=== PATIENT | male | born 1960 | race Caucasian/White ===

== ENCOUNTER 2016-09-07 10:00 | Inpatient (IN) | payer OTHER ==
[~2016-09-07] VITALS: Ht 180.3 cm; Wt 104.6 kg
--- NOTE | ~2016-09-07 | DS ---
PATIENT'S NAME: RUBIN BATISTA [facility] AGE: 56 Y [address] ROOM: [address] [place], [place] [address] LOCATION: GPCU ADMIT DATE: 09/07/2016 Discharge Summary DISCHARGE DATE: 09/11/2016 FAMILY PHYSICIAN: Shreyas Pena MD ATTENDING PHYSICIAN: Kostas Moon DISCHARGE DIAGNOSES: 1. ST-elevation myocardial infarction. 2. Essential hypertension. 3. Dyslipidemia. 4. Diabetes mellitus type 2. PROCEDURES: 1. 09/07/2016, left heart catheterization, PTCA stent LAD with bare-metal stent. 2. 09/09/2016, echocardiogram, EF 35%, [id number] left ventricular hypertrophy. 3. 09/10/2016, overnight trend oximetry showing evidence of significant nocturnal hypoxia. HOSPITAL COURSE: This is a 56-year-old gentleman who presented from [facility] via ambulance. He reported that he went into the hospital around 10 p.m. at night because of some chest discomfort. He took 2 baby aspirin and the pain resolved. The next morning around 6:30 a.m., he had some cough while he was sitting down and the chest pain returned;therefore, he presented to the emergency room there. He was found to have an ST-elevation myocardial infarction and he was started on heparin and nitroglycerin as well. Due to delay in air transport, he was given TNK. The pain remained at 7/10 in spite of lytics and he still had ST elevation; therefore, when he got to the emergency room in [facility], he was taken directly to cardiac cath. He was also placed on IABP pump overnight. The pump was then discontinued the next morning without any problems. He was then transferred to PCU. The patient was placed on beta-olegario and EN inhibitor therapy. He then had an echocardiogram, which showed acute ischemic cardiomyopathy. He was a little bit hypoxic and received some Lasix and they were able to discontinue his oxygen therapy. Prior to his discharge, he also underwent an overnight trend oximetry, which showed severe nocturnal hypoxia. He was then started on oxygen therapy at h.s. at home. In addition, he did have a little bit elevated creatinine and he was monitored closely and instructed not to take any offending medications including Advil and Aleve. He is on a statin for his hyperlipidemia. His last CPK peaked at 12,998, CK-MB 382 with a troponin I greater than 200 at 3 checks in a row. During the hospitalization, he was maintained on a moderate insulin sliding scale. DISCHARGE INSTRUCTIONS: Included follow up with Dr. Joleen Moon in 2 weeks. PATIENT'S NAME: RUBIN BATISTA [facility] AGE: 56 Y [address] ROOM: [place] [address] LOCATION: GPCU ADMIT DATE: 09/07/2016 Discharge Summary DISCHARGE DATE: 09/11/2016 FAMILY PHYSICIAN: Shreyas Pena MD ATTENDING PHYSICIAN: Kostas Moon He has appointment with Dr. Shreyas Pena as well. HOME MEDICATIONS: 1. His ibuprofen was stopped. 2. Aspirin 81 mg daily. 3. Metformin 1000 mg b.i.d. 4. [place]-3 fatty acids a 1000 mg everyday. 5. Atorvastatin 80 mg everyday. 6. Glipizide 10 mg twice a day. 7. Protonix 40 mg daily. 8. Brilinta 90 mg b.i.d. 9. Acetaminophen 650 mg every 4 hours. 10. Sodium chloride nasal spray as needed. 11. Metoprolol 25 mg daily in the morning and 12.5 mg at night. 12. MiraLAX 17 g p.o. everyday as needed. 13. Docusate sodium 100 mg twice a day. The patient and his verbalized understanding. JAMES BRADY APRN FOR MD NADEEN MORGANP/jeanl /[id number] d: 09/22/16 0543 t: 09/25/16 1319, DISCHARGE SUMMARY
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
--- NOTE | ~2016-09-07 | PUL ---
PATIENT'S NAME: RUBIN BATISTA [facility] AGE: 56 Y [address] ROOM: [facility] [place], [place] [address] LOCATION: GPCU ADMIT DATE: 09/07/2016 Pulmonary DISCHARGE DATE: 09/11/2016 FAMILY PHYSICIAN: Shreyas Pena MD ATTENDING PHYSICIAN: Kostas Moon NAME OF PROCEDURE: Overnight Pulse Oximetry DATE OF PROCEDURE: September 10 to September 11, 2016 REASON FOR EXAM: Nocturnal hypoxemia RESULTS: The test was performed on room air. The recording time was 5 hours, 22 minutes, with a total valid sampling time of 5 hours, 13 minutes, and 4 seconds. The highest pulse was 105, lowest pulse was 80, with a mean pulse of 88. The highest SpO2 99%, lowest SpO2 was 78%, with a mean pulse of 93.2%. The patient spent 7 minutes and 16 seconds with SpO2 less than 89%, representing 2.3% of the total sleep time. The desaturation event index was elevated at 36. PHYSICIAN INTERPRETATION: The patient has evidence of significant nocturnal hypoxia and would qualify for supplemental oxygen as per Medicare criteria. However because of his significant nocturnal hypoxia with an elevated desaturation event index a sleep study is recommended at this time. MD DK SAUL/anayeli /[id number] dtt: 09/15/16 0722 , COCO SAMSON dtd: 09/14/16 1428
--- NOTE | ~2016-09-07 | ECHO ---
Transthoracic Echocardiography Report (TTE) Demographics Patient Name RUBIN BATISTA Date of Study 09/09/2016 Patient Number [id number] Visit Number [id number] Date of 1960 Room Number G6328 Gender Male Number Age 56 year(s) Referring Red Kenyon MD Contour Grinder Praveena Zavala RVT Physician Jewell Silva MD Physician Interpreting Red Kenyon MD Department Store Manager Physician Supervising Ordering MD/MLP Physician Nurse Stress Geriatric Case Manager Conclusions Contractility Score Summary At rest the following contractility abnormalities were noted: Hypokinesis of the Mid infero-septal, the Apical inferior, the Apical septal, the Apical lateral and the Apical anterior segments; Akinesis of the Apical cap segment. Contractility of all other segments appeared normal. Summary The estimated left ventricular ejection fraction is 35%. Mild to moderate concentric left ventricular hypertrophy. Diastolic assessment reveals Grade I diastolic dysfunction. IVC measures 2.43 cm with no inspiratory collapse. Trivial mitral regurgitation by color Doppler. The aortic valve was not well imaged. The aortic valve is mildly sclerotic. The pulmonic valve is not well visualized. Possible pericardial effusion. Procedure Type of Study TTE procedure:2D Echocardiogram. Procedure Date Date: 09/09/2016 Start: 11:39 AM Study Location: Inpatient Portable Technical Quality: Limited visualization due to patient immobility. Additional Indications:STEMI Appropriate Use Criteria: 9 Patient Status: Routine HR: 104 bpm BP: 106/75 mmHg Allergies - No known allergies. M-Mode/2D Measurements LV Diastolic Dimension: 4.24 cm LV Systolic Dimension: 3.62 cm LV Septum Diastolic: 1.52 cm LV PW Diastolic: 1.33 cm AO Root Dimension: 2.8 cm Cardiac Output: 2.81 l/min AV Cusp Separation: 1.8 cm LA volume: 58 ml RV Base: 2.59 cm LVOT: 2 cm RV Mid: 2.41 cm LVOT VTI: 8.61 cm RV Length: 5.86 cm LV Stroke volume: 27.04 ml TDI-S': 15.2 cm/s Doppler Measurements AV Peak Velocity: 0.96 m/s MV Peak E-Wave: 0.51 m/s AV Peak Gradient: 3.67 mmHg MV Peak A-Wave: 0.61 m/s AV Mean Gradient: 2 mmHg MV E/A Ratio: 0.83 LVOT Peak Velocity: 0.56 m/s MV P1/2t: 32 msec TR Gradient:10.63 mmHg PV Peak Velocity: 0.83 m/s PV Peak Gradient: 2.74 mmHg E' Septal Velocity: 0.06 m/s A' Septal Velocity: 0.1 m/s E' Lateral Velocity: 0.06 m/s A' Lateral Velocity: 0.12 m/s Findings Left Ventricle Mild to moderate concentric left ventricular hypertrophy. Diastolic assessment reveals Grade I diastolic dysfunction. Right Ventricle Normal right ventricle structure and function. Left Atrium Normal left atrial size. Right Atrium IVC measures 2.43 cm with no inspiratory collapse. Mitral Valve Trivial mitral regurgitation by color Doppler. Aortic Valve The aortic valve is mildly sclerotic. Tricuspid Valve Normal tricuspid valve structure and function. Pulmonic Valve The pulmonic valve is not well visualized. Pericardial Effusion Possible pericardial effusion. Miscellaneous Visualized portions of the aortic root and ascending aorta appear normal in size. Pleural Effusion No evidence of pleural effusion. Contractility Score LV regional wall motion:(0-Non visualized 1-Normal 2-Hypokinesis 3-Akinesis 4-Dyskinesis 5-Aneurysm) Signature dtt: Kostas Moon (cardio) dtd: 09/09/16 1139 Physician Self Edit
--- NOTE | ~2016-09-07 | HP ---
PATIENT'S NAME: RUBIN ABTISTA [facility] AGE: 56 Y [address] ROOM: [place] [address] LOCATION: [facility] ADMIT DATE: 09/07/2016 History & Physical DISCHARGE DATE: FAMILY PHYSICIAN: Shreyas Pena MD ATTENDING PHYSICIAN: Kostas Moon DATE OF SERVICE: CHIEF COMPLAINT: Acute MA, diabetic management, and intractable nausea and vomiting. HISTORY OF PRESENT ILLNESS: This is a 56-year-old male with history of diabetes and hypertension, who presented to an outside facility with an acute onset of chest pain. Upon prompt evaluation, he was noted to have an acute anterior MA. The patient was promptly managed for an acute MA with Cardiology, Dr. Moon's consultation, was given tPA due to delays in transferring patient here, and was later transferred here. He did get a cardiac cath, and was noted to have a three- vessel disease including an LAD disease. He just had a bare-metal stent placed there. The patient currently is doing well. He reports that chest pain is significantly better, and is resting comfortably. The patient, however, continues to complain of nausea and vomiting; and this had been in relation to his onset of chest pain symptoms. Otherwise, the patient denies any dizziness, lightheadedness, or shortness of breath. He denies any fever, chills, cough, dysuria, or frequency of urination. PAST MEDICAL HISTORY: 1. Type 2 diabetes. 2. Hypertension. SOCIAL HISTORY: He has a remote history of smoking. He denies any alcohol or drug use. FAMILY HISTORY: The patient has history of heart disease and hypertension in his parents. REVIEW OF SYSTEMS: All systems have been reviewed, and were negative except as described in the HPI. PHYSICAL EXAMINATION: VITAL SIGNS: Afebrile, heart rate was 107, blood pressure was 115/96, saturating 91% on 2 L of oxygen, and respiratory rate was 17. GENERAL: The patient is awake and alert and oriented x3. No acute distress. HEENT: The patient has moist mucous membranes. No scleral icterus or PATIENT'S NAME: RUBIN BATISTA [facility] AGE: 56 Y [address] ROOM: [place] [address] LOCATION: [facility] ADMIT DATE: 09/07/2016 History & Physical DISCHARGE DATE: FAMILY PHYSICIAN: Shreyas Pena MD ATTENDING PHYSICIAN: Kostas Moon conjunctival pallor was noted. SKIN: Without rash or lesions. HEART: S1 and S2. Tachycardic. Regular rate and rhythm. CHEST: Clear to auscultation bilaterally. ABDOMEN: Soft, nontender, and nondistended with positive bowel sounds. NEUROLOGIC: Grossly nonfocal. MUSCULOSKELETAL: No joint pain, swelling, or tenderness was noted. ASSESSMENT AND PLAN: 1. Acute anterior myocardial infarction, status post tPA and PCI with bare- metal stent placement. The patient, per Dr. Moon's report, was found to have three-vessel disease, and will need evaluation for CABG. Dr. Moon with Cardiology is managing that. 2. Type 2 diabetes. The patient is on metformin at home, and tells me that his blood sugars are well controlled for the most part, except he had struggled with the gastrointestinal symptoms from metformin and that doses needed to be adjusted. In any case, I will hold his metformin while inpatient including his recent catheterization, and also his creatinine being 1.5 today. For now, we will use sliding-scale insulin and monitor, and we will check hemoglobin A1c level as well. 3. Acute kidney injury. Creatinine is 1.5 today. Baseline is uncertain at this point. We will avoid nephrotoxins at this point, and re-check his kidney function in the morning. 4. Hypotension. The patient was hypotensive due to his anterior myocardial infarction, and actually has an aortic balloon pump such that in this setting, we will hold all blood pressure lowering medications. 5. Nausea and vomiting, intractable. This is likely related to his anterior myocardial infarction. We will continue supportive care, and keep him n.p.o. for now and advance his diet as tolerated. Also, start him on PPI therapy daily. 6. Deep venous thrombosis prophylaxis. MD CAROL ANDREA/gopi /[id number] D: [id number] T: [id number] HISTORY & PHYSICAL
--- NOTE | ~2016-09-07 | CATH ---
Cardiac Diagnostic + PCI Report Demographics Patient Name LESTER Humphries Gender Male Date of 1960 Age 56 year(s) Patient Number [id number] Date of Study 09/07/2016 Visit Number [id number] Room Number G62[address] [place] [id number] Ht 182.88 cm Wt 104 kg Referring Red Kenyon MD Primary Physician Physician Performing Red Kenyon MD Secondary Physician Physician Diagnostic Red Kenyon MD Assisting Physician Physician Interventional Red Kenyon MD Physician Punch Molder Physician Findings and Conclusions Diagnostic Findings and Conclusion 3 Vessel CAD 100% LAD Diagnostic Recommendations PCI LAD Interventional Findings and Conclusion 0.014 prowater 3x15 Emerge 3.5x32 Rebel BMS 3.5x15 post dilated to 3.74 Interventional Recommendations DAPT for one month IABP overnight ECHO for LV function Will need CABG - after acute Recovery Procedure Description The patient was brought to the diagnostic cardiac catheterization-EP laboratory by emergency personal. Physician deemed procedure as EMERGENT. The planned puncture-incision site(s) were shaved and prepped with ChloraPrep and draped in the usual sterile manner. Conscious sedation, supplemental oxygen, and pain control medications were delivered by a registered nurse under physician guidance. Surface ECG rhythm, blood pressure measurement, and pulse oximetry were monitored throughout the procedure. Arterial access. The access site was infiltrated with lidocaine. The vessel was entered with the Seldinger technique. A sheath was advanced into the vessel and used for catheter placement. Selective left coronary angiography. A catheter was advanced into the left coronary vessel ostium under Fluoroscopic guidance. Contrast was injected by hand. Images were obtained in multiple projections. Selective right coronary angiography. A catheter was advanced into the right coronary vessel ostium under fluoroscopic guidance. Contrast was injected by hand. Images were obtained in multiple projections. Left heart catheterization. A catheter was advanced across the aortic valve to the left ventricle under fluoroscopic guidance. Resting hemodynamics were obtained. Angioplasty and Stent Placement: A guiding catheter was used to intubate the vessel. A 0.14 wire was then used to cross the lesion. A balloon catheter was placed across the lesion and inflated. The balloon catheter was then removed. A Bare Metal Stent was placed and inflated. Post placement angiograms were performed. IABP placement. The balloon catheter was advanced into the aorta and the tip was fluoroscopically positioned just distal to the left subclavian artery origin. The floppy guidewire was removed, and the central lumen of the catheter was flushed and attached to a pressure transducer. Balloon pumping was initiated, adjusting inflation and deflation times to maximize diastolic augmentation and minimize presystolic LV afterload. The intra-aortic balloon catheter was sutured in place at the end of the procedure. Arterial artery hemostasis was achieved. The patient was transferred to a regular nursing floor via cart accompanied by a nurse. The patient left the laboratory in stable condition. Diagnostic Cath Status: Salvage Interventional Cath Status: Salvage Procedure Procedure Type Diagnostic procedure:Angiography:, Coronary Angios w/[facility] PCI procedure:Bare Metal Coronary Stent:, LAD, PTCA:, LAD, Support:, IABP:, Insertion Indications: Abnormal ECG and elevated cardiac enzymes. Angiographic Findings Dominance: Mixed Cardiac Arteries and Lesion Findings LMCA: Normal (0% Stenosis).The LMCA is a large caliber vessel. The LMCA appears normal. LAD: Abnormal.The LAD is a large caliber vessel. Lesion on Prox LAD: 100% stenosis reduced to 0%. Pre procedure AFSANEH 0 flow was noted. Post Procedure AFSANEH III flow was present. The guidewire cross was successful.The lesion was diagnosed as a high risk lesion.Culprit lesion. Devices used - Prowater Wire .014 x 180. Number of passes: 1. - Emerge Balloon 3.0 x 15. 3 inflation(s) to a max pressure of: 10 yanet. - 3.5 x 32 Rebel Stent. 2 inflation(s) to a max pressure of: 15 yanet. - Emerge Balloon 3.5 x 15. 3 inflation(s) to a max pressure of: 11 yanet. LCx: Abnormal.The 1st ob Tila is a large caliber vessel. The 1st ob Tila appears abnormal. The 2nd ob Tila is a large caliber vessel. The 2nd ob Tila appears abnormal. Lesion on Mid CX: 90% stenosis . Lesion on 1st Ob Tila% stenosis . Lesion on 2nd Ob Tila% stenosis . RCA: Abnormal.RCA is abnormal . The RCA is a medium caliber vessel. The R PL is a medium caliber vessel. The R PL appears normal. The R PDA is a medium caliber vessel. The R PDA appears normal. Coronary Tree Procedure Data Procedure Date Date: 09/07/2016Start: 10:26 AMEnd: 11:35 AM Entry Locations - Retrograde Percutaneous access was performed through the Right Femoral artery (Primary location). A 6 Fr sheath was inserted. This was exchanged for a 8.5 Fr sheath. Hemostasis was successfully obtained using a pressurized flush bag which was connected to the sheath and it was sutured in place . Closure Comments: Roxanne. Procedure Medications Order and Administration + + + + + !Time !Medication !Dosage !Route ! + + + + + !09/07/2016 10:24 !Reopro (Abciximab) (ACC_7) !26 mg !I.V. bolus ! !AM ! ! ! ! + + + + + 09/07/2016 10:24 !Reopro (Abciximab) (ACC_7) !10.2 mcg/min!I.V. drip ! !AM ! ! ! ! + + + + + !09/07/2016 10:33 !Heparin (ACC_3) !3000 units !I.V. bolus ! !AM ! ! ! ! + + + + + !09/07/2016 10:34 !Heparin (ACC_3) ! !I.V. drip ! !AM ! ! ! ! + + + + + !09/07/2016 10:36 !Nitroglycerin !40 mcg/min !I.V. drip ! !AM ! ! ! ! + + + + + !09/07/2016 10:37 !Nitroglycerin !20 mcg/min !I.V. drip ! !AM ! ! ! ! + + + + + !09/07/2016 10:39 !Nitroglycerin ! !I.V. drip ! !AM ! ! ! ! + + + + + !09/07/2016 10:41 !0.9% NaCl !250 ml !I.V. bolus ! !AM ! ! ! ! + + + + + !09/07/2016 10:41 !Nipride !50 mcg !I.C. ! !AM ! ! ! ! + + + + + !09/07/2016 10:50 !Angel-Synephrine !50 mcg !I.V. bolus ! !AM !(Phenylephrine) ! ! ! + + + + + !09/07/2016 10:50 !Nipride !50 mcg !I.C. ! !AM ! ! ! ! + + + + + !09/07/2016 10:55 !Nipride !50 mcg !I.C. ! !AM ! ! ! ! + + + + + !09/07/2016 11:11 !Nitroglycerin !5 mcg/min !I.V. drip ! !AM ! ! ! ! + + + + + !09/07/2016 11:16 !Brilinta (Ticagrelor) !180 mg !P.O. ! !AM !(ACC_20) ! ! ! + + + + + !09/07/2016 11:16 !0.45% NaCl !75 ml/hr !I.V. drip ! !AM ! ! ! ! + + + + + !09/07/2016 11:26 !Oxygen !8 l/min !NRB ! !AM ! ! ! ! + + + + + Devices Used - A6 Fr. BS JL 4 Diag. Catheterwas used for:Left coronary angiography. - A6 Fr. XB 3.5 Guide Catheterwas used for:LAD Intervention. - A6 Fr. BS JR 4 Diag. Catheterwas used for:Right coronary angiography. - A6 Fr. BS Angled Pigtail Diag. Catheterwas used for:LV Pressures. Contrast Material - Isovue 387256 ml Fluoroscopy Time: Diagnostic: 13:18 minutes. Total: 13:18 minutes. Fluoroscopy Dose: Diagnostic: 2623 mGy. Total: 2623 mGy. Estimated Blood Loss: 7 ml. IABP: IABP was Inserted after PCI has begun. Additional [facility] PCI Information PCI Indication:Rescue PCI for STEMI (after failed full-dose lytics). Medical History Performed Procedures and Imaging Results - No [facility] stress or imaging studies were performed. Allergies - No known allergies. Risk Factors The patient risk factors include:hypertension, family history of premature CAD, diabetes mellitus, last creatinine: 1.5 mg/dl, creatinine clearance: 80.89 ml/min, dyslipidemia and former tobacco use. Admission Data Admission Date: 09/07/2016 Admission Time: 10:21 AM Admit Source: Transfer acute care facility Insurance Payors: Private health insurance. Admission Medications + +------+------+ + + + + !Medication !Dosage!Times !Last !Last !Administered !Comments ! ! ! !Per !Delivery !Delivery ! ! ! ! ! !Day !Date !Time ! ! ! + +------+------+ + + + + !EN ! ! ! ! !Yes ! ! !Inhibitor ! ! ! ! ! ! ! !(any) ! ! ! ! ! ! ! + +------+------+ + + + + Clinical Evaluation Leading to Procedure - The patient's CAD presentation was assessed as: STEMI.The symptom onset was first noted on 09/07/2016 06:30 AM(time was estimated). - The patient recevied thrombolytic therapy as an urgent treatment for STEMI on 09/07/2016 09:00 AM. - The patient's anginal syndrome during the past two weeks was assessed as: Class IV according to the [place] Cardiovascular Society Classification System (CCS). Hemodynamics Condition: Rest O2 Consumption: Estimated: 301.04Heart Rate: 109 bpm Pressures (mmHg) +-----+ + !Site !Pressure ! +-----+ + !AO !122/92 (106) ! +-----+ + !AO !109/ (100) ! +-----+ + !AO !108/ (97) ! +-----+ + !LV !110/29 ,43 ! +-----+ + !LV !111/28 ,40 ! +-----+ + !AO !116/92 (104) ! +-----+ + !LV !102/21 ,35 ! +-----+ + Valve Gradients and Areas + +---------+---------+---------+ +---------+ + !Valve !Peak !Mean !Area !Index !Flow !Source ! + +---------+---------+---------+ +---------+ + !Aortic !0 !0 ! ! ! ! ! + +---------+---------+---------+ +---------+ + !Aortic !0 !0 ! ! ! ! ! + +---------+---------+---------+ +---------+ + Shunts Oxygen Values O2 Capacity 236.64 O2 Consumption 301.04 Signatures dtt: Kostas Moon (cardio) dtd: 09/07/16 1026 Physician Self Edit
[2016-09-07 11:23] LABS: MAGNESIUM 1.8 mg/dL (1.8-2.6)
[2016-09-07] MEDS ORDERED: ADVIL200 MG PO (12:43)
[2016-09-07] MEDS ORDERED: ASPIRIN LO-DOSE81 MG PO (12:43)
[2016-09-07] MEDS ORDERED: PRINIVIL (ZESTRI5 MG PO (12:44)
[2016-09-07] MEDS ORDERED: GLUCOPHAGE XR500 M1 PO (12:44)
[2016-09-07] MEDS ORDERED: FISH OIL 1,0001 EAC1 PO (12:44)
[2016-09-07 16:14] LABS: CPK 12998 IU/L (35-332)
--- NOTE | 2016-09-07 16:21 | NUR ---
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 IABP to R)femoral. 1:2, EKG trigger, 100% augmented, and to keep augmented pressures >100. Pulses 2+ throughout. Did have one episode of emesis and patient bent at the waist. Hematoma noted with some drainage on transparent. Zofran given x1. Dr Moon updated. PVCs, bigeminy, and PACs noted. 1 gm MG replaced. AAOx3, POARCH, denies N/T. 6L N/C to maintain sats, lungs clear throughout.
[2016-09-07 20:33] LABS: CPK 11409 IU/L (35-332)
[2016-09-08 01:40] LABS: CPK 8849 IU/L (35-332)
[2016-09-08 04:26] LABS: BASOPHIL % 0.1 %; HEMATOCRIT 43.4 % (37.0-53.0); HEMOGLOBIN 14.2 g/dL (12.0-17.0); IMMATURE GRANULOCYTE # 0.1 K/uL (0.0-0.3); IMMATURE GRANULOCYTE % 0.4 %; LYMPHOCYTE # 1.4 K/uL (0.8-4.0); LYMPHOCYTE % 9.6 %; MCH 28.3 pg (27.0-34.0); MCHC 32.7 gm/dL (32.0-36.5); MCV 86.6 fl (83.0-98.0); MONOCYTE # 1.3 K/uL (0.0-1.0); MONOCYTE % 8.6 %; MPV 10.4 fl (9.4-12.4); NEUTROPHIL # (ANC) 12.1 K/uL (1.4-9.0); NEUTROPHIL % 81.3 %; NRBC % 0 /100WBC (0-0.00); PLATELET COUNT 256 K/uL (150-450); RBC 5.01 M/uL (4.00-6.00); RDW-CV 13.1 % (11.9-14.6); WBC 14.8 K/uL (4.0-11.0)
[2016-09-08 04:31] LABS: ALBUMIN 3.2 gm/dL (3.5-5.0); ANION GAP 11.4 (10.0-19.0); CALCIUM 8.2 mg/dL (8.5-10.5); CREATININE 1.8 mg/dL (0.6-1.3); POTASSIUM 4.4 mMol/L (3.7-5.1); TOTAL BILIRUBIN 0.6 mg/dL (0.0-1.5); TOTAL PROTEIN 6.7 g/dL (6.0-8.4)
--- NOTE | 2016-09-08 05:29 | NUR ---
patient is fatigue and sleepy but easily awake will follow simple commands moves all extremities,clear upper lungs sound diminished on the bases,nc 2l/min f8noj=40%,patient tolerate I.A.B.P TO rt groin,1:2 mode,pedal pulses are palpable,slight hematoma amalia the entery site,patient had 2 moderate amount emesis,void using urinal. FOLLOW UP:continue to monitor patient's hemodynamically closely.
[2016-09-08 07:46] LABS: CPK 6770 IU/L (35-332)
--- NOTE | 2016-09-08 16:10 | NUR ---
Significant Events: Oriented x3, continues to be SR-ST, IABP decreased to 1:3 this AM but did have to increase to 1:2 d/t low Aug pressures and systolics. Difficulty with nausea also during this episode. Plans to rest overnight on IABP and will reassess in the AM. Titrated to room air, lungs remain clear. Appetite poor, continues to be on clear liquid diet d/t nausea. Voids per urinal. Follow up: Continue on IABP overnight, reassess in AM
--- NOTE | 2016-09-09 03:36 | NUR ---
Significant Event: A/OX3. IABP 1:2 100% augmented via EKG. HR 90-110s. SBP 90-110s with MAPs 80-100s. 2L NC. Lungs clear/dim. No nausea. Active bowel sounds. No BM. Voided 550 ml urine via urinal. Small hematoma at IABP insertion site. Heparin running at 1600 units/hr and 1/2NS running at 75 l/hr. Denies pain. Follow up: Wean IABP
[2016-09-09 05:02] LABS: BASOPHIL % 0.3 %; EOSINOPHIL % 0.2 %; HEMATOCRIT 39.1 % (37.0-53.0); HEMOGLOBIN 12.9 g/dL (12.0-17.0); IMMATURE GRANULOCYTE # 0.1 K/uL (0.0-0.3); IMMATURE GRANULOCYTE % 0.6 %; LYMPHOCYTE # 2.1 K/uL (0.8-4.0); LYMPHOCYTE % 20.3 %; MCH 28.2 pg (27.0-34.0); MCV 85.6 fl (83.0-98.0); MONOCYTE # 1.1 K/uL (0.0-1.0); MONOCYTE % 10.6 %; MPV 10.1 fl (9.4-12.4); NEUTROPHIL # (ANC) 6.9 K/uL (1.4-9.0); NRBC % 0 /100WBC (0-0.00); RBC 4.57 M/uL (4.00-6.00); RDW-CV 13.2 % (11.9-14.6); WBC 10.1 K/uL (4.0-11.0)
[2016-09-09 05:04] LABS: PLATELET COUNT 172 K/uL (150-450)
[2016-09-09 05:24] LABS: ANION GAP 16.2 (10.0-19.0); CALCIUM 7.9 mg/dL (8.5-10.5); CREATININE 1.3 mg/dL (0.6-1.3); MAGNESIUM 2.1 mg/dL (1.8-2.6); POTASSIUM 4.2 mMol/L (3.7-5.1); TOTAL PROTEIN 6.4 g/dL (6.0-8.4)
--- NOTE | 2016-09-09 11:34 | NUR ---
Introduced myself and role of care management to pt and . He lives up in [place] and is self employed. At this time does not anticipate any dc needs and will need to come back at a later date for surgery.
--- NOTE | 2016-09-09 17:56 | NUR ---
Significant Event: Balloon pump removed at 0900 by previous RN and fempstop placed to R) groin. Femstop removed at 1400. Bedrest until 1500, since has been up to chair in in room. R) groin is bruised and slightly swollen, but has remained unchanged through the shift. No further nausea this shift. Appetite good. No complaints of pain. Ambulates withminimal assist. ORA, VSS. Follow up: transfer to PCU.
[2016-09-10 05:15] LABS: BASOPHIL % 0.2 %; EOSINOPHIL % 0.2 %; HEMATOCRIT 36.7 % (37.0-53.0); HEMOGLOBIN 12.3 g/dL (12.0-17.0); IMMATURE GRANULOCYTE # 0.1 K/uL (0.0-0.3); IMMATURE GRANULOCYTE % 0.6 %; LYMPHOCYTE # 1.2 K/uL (0.8-4.0); LYMPHOCYTE % 13.3 %; MCH 28.7 pg (27.0-34.0); MCHC 33.5 gm/dL (32.0-36.5); MCV 85.5 fl (83.0-98.0); MONOCYTE # 0.8 K/uL (0.0-1.0); MONOCYTE % 8.9 %; MPV 10.2 fl (9.4-12.4); NEUTROPHIL # (ANC) 6.7 K/uL (1.4-9.0); NEUTROPHIL % 76.8 %; NRBC % 0 /100WBC (0-0.00); PLATELET COUNT 177 K/uL (150-450); RBC 4.29 M/uL (4.00-6.00); RDW-CV 12.8 % (11.9-14.6); WBC 8.7 K/uL (4.0-11.0)
[2016-09-10 05:29] LABS: ANION GAP 13.1 (10.0-19.0); CALCIUM 8.3 mg/dL (8.5-10.5); CREATININE 1.3 mg/dL (0.6-1.3); MAGNESIUM 2.2 mg/dL (1.8-2.6); POTASSIUM 4.1 mMol/L (3.7-5.1)
--- NOTE | 2016-09-10 07:02 | NUR ---
Significant Event: PATIENT ARRIVED ON ROOM AIR, BUT I HAD TO APPLY 2L TO KEEP SATS ABOVE 90 WHILE AWAKE. HAD TO INCREASE TO 3L WHILE SLEEPING. HR REMAINS TACHY IN THE 100'S TO 1'TEENS. ALL OTHER VSS ON RA. DRESSING CHANGED TO RIGHT GROIN DUE TO IT FALLING OFF. SITE REMAINS ECCHY BUT NO OTHER COMPLICATIONS. HE HAS DENIED ALL PAIN AND RESTED WELL. PLAN TO D/C TUESDAY EVENING OR SAT MORN AND TO COME BACK IN A MONTH FOR FURTHER INTERVENTIONS. Follow up:
--- NOTE | 2016-09-10 16:53 | NUR ---
Significant event: A&Ox3. HR 100-110's, Metoprolol initiated, HR 90's now. Afebrile. On RA. SBP 110-120's. Given 20 mg of IV Lasix, has had 900 ml + void out. R) groin ecchymotic, tender, CSM WNL. Ambulated in halls today, did become short of breath and c/o tingling in hands according to PT. Instructed patient on increasing activity slowly, and taking breaks as needed. Colace and MOM given, patient passing flatus, but no BM yet. Follow Up: Over night trend-ox scheduled for tonight.
[2016-09-11 04:22] LABS: ANION GAP 12.9 (10.0-19.0); CALCIUM 8.6 mg/dL (8.5-10.5); CREATININE 1.4 mg/dL (0.6-1.3); MAGNESIUM 2.3 mg/dL (1.8-2.6); POTASSIUM 3.9 mMol/L (3.7-5.1)
--- NOTE | 2016-09-11 05:58 | NUR ---
Significant Event: Patient alert and oriented x3. Vital signs stable. HRs 80s-90s. On RA. Trend Ox study done this shift. Patient complained frequently of constipation. MOM, Miralax, and Prune Juice all given this shift with no results. Right groin site soft, C/D/I, ecchymotic. Up with stand-by assist in room and halls. Can become SOB with activity. Calm and cooperative with all cares. Follow up: Home today?
[2016-09-11] MEDS ORDERED: LIPITOR80 MG PO (11:35)
[2016-09-11] MEDS ORDERED: GLIPIZIDE10 MG PO (11:44)
[2016-09-11] MEDS ORDERED: PROTONIX40 MG PO (11:45)
[2016-09-11] MEDS ORDERED: BRILINTA90 MG PO (11:46)
[2016-09-11] MEDS ORDERED: TYLENOL325 MG PO (11:47)
[2016-09-11] MEDS ORDERED: OCEAN NASAL) (A44 ML INH (11:56)
[2016-09-11] MEDS ORDERED: LOPRESSOR25 MG PO ×2 (11:58→12:00)
[2016-09-11] MEDS ORDERED: MIRALAX17 GM PO (12:01)
[2016-09-11] MEDS ORDERED: COLACE100 MG PO (12:02)
--- NOTE | 2016-09-11 15:02 | NUR ---
d-drs ord pt dc i-soham did teaching on all meds with new ones explained, info printed and given to pt/ on meds, cath/groin cares, chf teaching done and calendar given, bp/pulse norms explained and pt will check his at least 2xday and will keep a log, to watch for low bp less than 100 sbp, got brillinta with card, appts to be set by pt, pt had bm finally, vitals stable, pt ate/drank and voids well, n o c/o pain, does not seem sob with exertions to toilet, r)groin soft but bruise dressing removed, diabetes eval signed r-pt and have no more questions p-dc as ord, ta took per wc
== END 2016-09-11 13:37 | disposition disaster alternative care site (69) | DRG 270 ==
LOC: GPCU 10:21 → GICU 10:21 → GPCU 09-09 19:03
PROVIDERS: Hospitalist; Internal Medicine Interventional Cardiology; ADMIT Internal Medicine
DX: I21.02 ST elevation (STEMI) myocardial infarction involving left anterior descending coronary artery (principal); J96.01 Acute respiratory failure with hypoxia; K72.00 Acute and subacute hepatic failure without coma; N17.9 Acute kidney failure, unspecified; I95.9 Hypotension, unspecified; E11.65 Type 2 diabetes mellitus with hyperglycemia; I25.10 Atherosclerotic heart disease of native coronary artery without angina pectoris; I10 Essential (primary) hypertension; E78.5 Hyperlipidemia, unspecified; Z92.82 Status post administration of tPA (rtPA) in a different facility within the last 24 hours prior to admission to current facility; Z79.84 Long term (current) use of oral hypoglycemic drugs; Z87.891 Personal history of nicotine dependence; Z82.49 Family history of ischemic heart disease and other diseases of the circulatory system; I25.5 Ischemic cardiomyopathy; Z79.82 Long term (current) use of aspirin
CPT/HCPCS: C1725; C1769; C1887; C9113; J0130; J1644; J1940; J2370; J2405; J3475; J7030; J7060

== ENCOUNTER → 2016-09-07 | Outpatient (CLI) | payer OTHER ==
[~2016-09-07] MED LIST: ADVIL200 MG PO; ASPIRIN LO-DOSE81 MG PO; BRILINTA90 MG PO; COLACE100 MG PO; FISH OIL 1,0001 EAC1 PO; GLIPIZIDE10 MG PO; GLUCOPHAGE XR500 M1 PO; LIPITOR80 MG PO; LOPRESSOR25 MG PO; MIRALAX17 GM PO; OCEAN NASAL) (A44 ML INH; PRINIVIL (ZESTRI5 MG PO; PROTONIX40 MG PO; TYLENOL325 MG PO
== END | disposition disaster alternative care site (69) ==
LOC: GAMB 10:00
DX: I21.09 ST elevation (STEMI) myocardial infarction involving other coronary artery of anterior wall (principal); R07.9 Chest pain, unspecified
CPT/HCPCS: A0425; A0428

== ENCOUNTER → 2016-11-22 | Outpatient (CLI) | payer OTHER ==
--- NOTE | ~2016-11-22 | PUL ---
PATIENT'S NAME: [facility] AGE: 56 Y [address] ROOM: [place] [address] LOCATION: [facility] ADMIT DATE: 11/22/2016 Pulmonary DISCHARGE DATE: FAMILY PHYSICIAN: Shreyas Pena MD ATTENDING PHYSICIAN: Shreyas Pena NAME OF PROCEDURE: Sleep study PROCEDURE DATE: 11/22/16 TECH: KAILEE Matthews TEST #: [facility]# [phone] TECHNICAL PARAMETERS: The patient was studied using International 10/20 measuring system. While the patient was studied, there was continuous monitoring of EEG (8 leads), EOG (2 leads), EKG (3 leads), submental EMG (3 leads), tibial (4 leads), respiratory inductive plethysmography (RIP) for thoracic and abdominal effort, oral and nasal airflow with a thermocouple and pressure transducer, and oximetry. The magnetic testing technician also performed visual and auditory observations noting things like body position, patient's status, breath sounds, artifact, snoring level and patient comments. Continuous sound was monitored using a 2-way speaker system and video monitoring was performed using an infrared camera. Review of the entire study was performed epoch by epoch utilizing a single epoch and multiple epoch capability sleep system. MEDICAL HISTORY: The patient is a 56-year-old overweight man with daytime sleepiness and snoring. SLEEP STAGE SUMMARY: The patient was studied for 434 minutes of which he slept 355 minutes. He fell asleep in 4 minutes and slept for 82% of the night. Sleep architecture revealed a decline in slow wave sleep. RESPIRATORY SUMMARY: Oxygen saturations ranged from 85-95% and were below 88% for 18 minutes. Prior to initiating CPAP there were 92 apneas and 45 hypopneas for an apnea/hypopnea index severely elevated at 39 events per hour. CPAP was initiated and titrated to 14 cm with significant but incomplete control of the respiratory events. EKG SUMMARY: No dysrhythmias were noted. LEG MOVEMENT SUMMARY: No clinically relevant periodic limb movements were noted. SUMMARY: Obstructive sleep apnea PATIENT'S NAME: [facility] AGE: 56 Y [address] ROOM: [place] [address] LOCATION: [facility] ADMIT DATE: 11/22/2016 Pulmonary DISCHARGE DATE: FAMILY PHYSICIAN: Shreyas Pena MD ATTENDING PHYSICIAN: Shreyas Pena PLAN: Would suggest either auto titrating CPAP with settings of 5-18 cm or a repeat study for more complete CPAP titration. Patient will receive results from the ordering provider. MD JASMINA SABILLON/ /[id number] dtt: 11/30/16 1011 , Sujit Fall. dtd: 11/25/16 1527
== END | disposition disaster alternative care site (69) ==
LOC: GSLP 20:49
DX: G47.8 Other sleep disorders (principal); G47.33 Obstructive sleep apnea (adult) (pediatric)